=== PATIENT | male | born 1950 | race Caucasian/White ===

== ENCOUNTER 2017-06-28 17:23 | Inpatient (IN) | payer OTHER ==
[2017-06-28] MEDS: SOD CHLORIDE 0.9% 500 ML IV ×2 (17:32→22:30)
[2017-06-28 17:58] LABS: ADD MAN DIFF? NO
[2017-06-28 18:02] LABS: BASOPHILS % 0.2 % (0.0-2.0); EOSINOPHILS % 0.3 % (0.0-7.0); HEMATOCRIT 33.8 % (42.0-52.0); HEMOGLOBIN 11.7 g/dl (14.0-18.0); LYMPHOCYTES # 0.9 10^3/ul (0.8-2.9); LYMPHOCYTES % 9.5 % (15.0-51.0); MEAN CORPUSCULAR HEMOGLOBIN 27.5 pg (29.0-33.0); MEAN CORPUSCULAR HGB CONC 34.6 g/dl (32.0-37.0); MEAN CORPUSCULAR VOLUME 79.3 fl (82.0-101.0); MEAN PLATELET VOLUME 8.7 fl (7.4-10.4); MONOCYTE # 0.7 10^3/ul (0.3-0.9); MONOCYTES % 7.7 % (0.0-11.0); NEUTROPHIL # 7.4 10^3/ul (1.6-7.5); NEUTROPHILS % 82.1 % (39.0-77.0); PLATELET COUNT 349 10^3/UL (140-415); RED BLOOD COUNT 4.26 10^6/ul (4.70-6.10); RED CELL DISTRIBUTION WIDTH 15.5 % (11.5-14.5)
[2017-06-28 18:22] LABS: INR 1.43; PROTIME 17.7 Sec (11.9-14.9); PT RATIO 1.4
[2017-06-28 18:28] LABS: LACTIC ACID 1.7 mmol/L (0.5-2.0)
[2017-06-28 18:30] LABS: ACETAMINOPHEN < 10.0 ug/ml (10.0-30.0); ALANINE AMINOTRANSFERASE 46 IU/L (13-69); ALBUMIN 4.6 g/dl (3.3-4.9); ALBUMIN/GLOBULIN RATIO 1.24; ALKALINE PHOSPHATASE 65 IU/L (42-121); ANION GAP 20 (8-16); ASPARTATE AMINO TRANSFERASE 62 IU/L (15-46); BILIRUBIN,INDIRECT 0.8 mg/dl (0-1.1); BILIRUBIN,TOTAL 0.8 mg/dl (0.2-1.3); BLOOD UREA NITROGEN 10 mg/dl (7-20); CARBON DIOXIDE 29 mmol/L (21-31); CHLORIDE 81 mmol/L (97-110); CREATININE 0.62 mg/dl (0.61-1.24); ETHANOL < 10.0 mg/dl; GLUCOSE 65 mg/dl (70-220); POTASSIUM 3.7 mmol/L (3.5-5.1); SALICYLATE < 1.0 mg/dl (5.0-30.0); SODIUM 126 mmol/L (135-144); TOTAL PROTEIN 8.3 g/dl (6.1-8.1)
[2017-06-28 18:41] LABS: B-TYPE NATRIURETIC PEPTIDE 1740 PG/ML (0-125)
[2017-06-28 18:50] LABS: TROPONIN-I < 0.012 ng/ml (0.00-0.12)
[2017-06-28 21:06] LABS: AADO2 Arterial 265.3 mmHg (7.0-24.0); Allen Test ACCEPTAB; Arterial Base Excess 4.4 mmol/L (-3.0-3); Arterial Blood Gas Oxygen Sat 97.8 mmHG (95.0-98.0); Arterial COHb 0.5 % (0.0-3.0); Arterial HCO3 29.6 mmol/L (22.0-26.0); Arterial MetHb 0.3 % (0.0-1.5); Arterial pCO2 46.6 mmhg (35-45); Blood Gas IEPAP 15/5; MODE MASK - BIPAP; Site Right Radial
[2017-06-28] MEDS ORDERED: FUROSEMIDE 40 MG INJ IV (22:30)
[2017-06-28] MEDS: LORAZEPAM 2 MG INJ IV (22:30)
[2017-06-28 23:48] LABS: CREATINE KINASE 672 IU/L (23-200)
[2017-06-28 23:59] LABS: CK INDEX 1.3; TROPONIN-I 0.013 ng/ml (0.00-0.12)
[2017-06-29 00:01] LABS: CK-MB 8.43 ng/ml (0.0-2.4)
[2017-06-29] MEDS ORDERED: NACL 0.9% 3 ML SYG IV (02:30)
[2017-06-29] MEDS ORDERED: ONDANSETRON 4 MG INJ IV (02:30)
[2017-06-29] MEDS ORDERED: ALBUTEROL/IPRATROPIUM (NEB) 3 ML AMP HHN (02:30)
[2017-06-29] MEDS ORDERED: NITROGLYCERIN (SL) 0.4 MG TAB SL (02:30)
[2017-06-29] MEDS ORDERED: ACETAMINOPHEN 325 MG TAB PO (02:30)
[2017-06-29] MEDS: SODIUM CHLORIDE 1 GM TAB PO ×3 (03:30→13:16)
[2017-06-29] MEDS: LORAZEPAM 2 MG INJ IV (04:38)
[2017-06-29 05:44] LABS: ADD MAN DIFF? NO
[2017-06-29] MEDS: BRIMONIDINE 0.2% 5 ML BTL BOTH EYES ×2 (06:00→14:31)
[2017-06-29 06:02] LABS: BASOPHILS % 0.2 % (0.0-2.0); EOSINOPHILS % 0.3 % (0.0-7.0); HEMATOCRIT 31.9 % (42.0-52.0); LYMPHOCYTES # 1.4 10^3/ul (0.8-2.9); LYMPHOCYTES % 13.9 % (15.0-51.0); MEAN CORPUSCULAR HEMOGLOBIN 27.9 pg (29.0-33.0); MEAN CORPUSCULAR HGB CONC 34.5 g/dl (32.0-37.0); MEAN PLATELET VOLUME 8.7 fl (7.4-10.4); MONOCYTE # 0.9 10^3/ul (0.3-0.9); MONOCYTES % 9.3 % (0.0-11.0); NEUTROPHIL # 7.6 10^3/ul (1.6-7.5); NEUTROPHILS % 75.9 % (39.0-77.0); PLATELET COUNT 342 10^3/UL (140-415); RED BLOOD COUNT 3.94 10^6/ul (4.70-6.10); RED CELL DISTRIBUTION WIDTH 15.3 % (11.5-14.5)
[2017-06-29 06:16] LABS: CREATINE KINASE 809 IU/L (23-200)
[2017-06-29 06:22] LABS: ALANINE AMINOTRANSFERASE 47 IU/L (13-69); ALBUMIN 4.5 g/dl (3.3-4.9); ALBUMIN/GLOBULIN RATIO 1.36; ALKALINE PHOSPHATASE 60 IU/L (42-121); ANION GAP 18 (8-16); ASPARTATE AMINO TRANSFERASE 66 IU/L (15-46); BILIRUBIN,INDIRECT 0.7 mg/dl (0-1.1); BILIRUBIN,TOTAL 0.7 mg/dl (0.2-1.3); BLOOD UREA NITROGEN 9 mg/dl (7-20); CALCIUM 8.7 mg/dl (8.4-10.2); CARBON DIOXIDE 29 mmol/L (21-31); CHLORIDE 83 mmol/L (97-110); CREATININE 0.64 mg/dl (0.61-1.24); GLUCOSE 85 mg/dl (70-220); POTASSIUM 3.7 mmol/L (3.5-5.1); SODIUM 126 mmol/L (135-144); TOTAL PROTEIN 7.8 g/dl (6.1-8.1)
[2017-06-29 06:26] LABS: CK INDEX 1.2; TROPONIN-I 0.019 ng/ml (0.00-0.12)
[2017-06-29 06:31] LABS: CK-MB 9.95 ng/ml (0.0-2.4)
[2017-06-29] MEDS: FUROSEMIDE 40 MG INJ IV ×2 (06:50→18:23)
[2017-06-29] MEDS: AMLODIPINE 10 MG TAB PO (08:26)
[2017-06-29] MEDS: APIXABAN 5 MG TABLET PO ×2 (08:26→21:00)
[2017-06-29] MEDS: ISOSORBIDE MONONITRATE(SR)60 MG TAB PO (08:27)
[2017-06-29] MEDS: PYRIDOXINE 50 MG TAB PO (08:27)
[2017-06-29] MEDS: GABAPENTIN 100 MG CAP PO (08:27)
[2017-06-29] MEDS: DOCUSATE SODIUM 100 MG CAP PO ×2 (08:31→21:00)
[2017-06-29] MEDS: METOPROLOL 25 MG TAB PO (08:31)
[2017-06-29] MEDS: ASPIRIN (EC) 81 MG TAB PO (08:31)
[2017-06-29] MEDS: POTASSIUM CHLORIDE (SR) 20 MEQ TAB PO (08:32)
[2017-06-29] MEDS: HEPARIN 5,000 UNIT/0.5 ML VIAL SC (09:02)
[2017-06-29] MEDS: ATORVASTATIN 20 MG TAB PO (21:00)
[2017-06-29] MEDS ORDERED: GLUCAGON 1 MG INJ IM (21:30)
[2017-06-29] MEDS ORDERED: DEXTROSE 50% 50 ML SYRINGE IV ×2 (21:30)
[2017-06-29] MEDS ORDERED: GLUCOSE GEL 15 GRAM TUBE PO ×2 (21:30)
[2017-06-29] MEDS ORDERED: GLUCOSE GEL 15 GRAM TUBE BUCCAL (21:30)
[2017-06-30] MEDS: ATORVASTATIN 20 MG TAB PO (00:04)
[2017-06-30] MEDS: PAROXETINE 20 MG TAB PO ×2 (00:05→21:09)
[2017-06-30] MEDS: APIXABAN 5 MG TABLET PO ×2 (00:05→21:09)
[2017-06-30] MEDS: QUETIAPINE 25 MG TAB PO ×2 (00:05→21:09)
[2017-06-30] MEDS: DOCUSATE SODIUM 100 MG CAP PO ×2 (00:06→21:08)
[2017-06-30] MEDS: METOPROLOL 25 MG TAB PO ×3 (00:07→21:00)
[2017-06-30] MEDS: HEPARIN 5,000 UNIT/0.5 ML VIAL SC ×3 (00:13→21:13)
[2017-06-30] MEDS: LATANOPROST 0.005% 2.5 ML OPH BOTH EYES ×2 (00:19→21:34)
[2017-06-30] MEDS: BRIMONIDINE 0.2% 5 ML BTL BOTH EYES ×4 (00:20→21:34)
[2017-06-30] MEDS: SODIUM CHLORIDE 1 GM TAB PO ×4 (01:29→21:37)
[2017-06-30] MEDS: FUROSEMIDE 40 MG INJ IV ×2 (06:22→17:33)
[2017-06-30 07:47] LABS: ADD MAN DIFF? NO
[2017-06-30 07:49] LABS: BASOPHILS % 0.4 % (0.0-2.0); EOSINOPHILS # 0.1 10^3/ul (0.0-0.5); HEMATOCRIT 32.9 % (42.0-52.0); HEMOGLOBIN 11.1 g/dl (14.0-18.0); LYMPHOCYTES # 1.5 10^3/ul (0.8-2.9); LYMPHOCYTES % 14.4 % (15.0-51.0); MEAN CORPUSCULAR HEMOGLOBIN 27.5 pg (29.0-33.0); MEAN CORPUSCULAR HGB CONC 33.7 g/dl (32.0-37.0); MEAN CORPUSCULAR VOLUME 81.6 fl (82.0-101.0); MEAN PLATELET VOLUME 8.8 fl (7.4-10.4); MONOCYTE # 1.2 10^3/ul (0.3-0.9); MONOCYTES % 11.8 % (0.0-11.0); NEUTROPHIL # 7.3 10^3/ul (1.6-7.5); PLATELET COUNT 317 10^3/UL (140-415); RED BLOOD COUNT 4.03 10^6/ul (4.70-6.10); RED CELL DISTRIBUTION WIDTH 15.5 % (11.5-14.5)
[2017-06-30 07:49] LABS: WHITE BLOOD COUNT 10.1 10^3/ul (4.8-10.8)
[2017-06-30 08:14] LABS: ALANINE AMINOTRANSFERASE 49 IU/L (13-69); ALBUMIN 3.9 g/dl (3.3-4.9); ALBUMIN/GLOBULIN RATIO 1.25; ALKALINE PHOSPHATASE 57 IU/L (42-121); ANION GAP 18 (8-16); ASPARTATE AMINO TRANSFERASE 71 IU/L (15-46); BILIRUBIN,INDIRECT 0.9 mg/dl (0-1.1); BILIRUBIN,TOTAL 0.9 mg/dl (0.2-1.3); BLOOD UREA NITROGEN 8 mg/dl (7-20); CALCIUM 8.1 mg/dl (8.4-10.2); CARBON DIOXIDE 32 mmol/L (21-31); CHLORIDE 84 mmol/L (97-110); CREATININE 0.53 mg/dl (0.61-1.24); GLUCOSE 94 mg/dl (70-220); MAGNESIUM 1.1 mg/dl (1.7-2.5); POTASSIUM 3.5 mmol/L (3.5-5.1); SODIUM 130 mmol/L (135-144)
[2017-06-30] MEDS: AMLODIPINE 10 MG TAB PO (09:20)
[2017-06-30] MEDS: PYRIDOXINE 50 MG TAB PO (09:21)
[2017-06-30] MEDS: POTASSIUM CHLORIDE (SR) 20 MEQ TAB PO (09:21)
[2017-06-30] MEDS: ISOSORBIDE MONONITRATE(SR)60 MG TAB PO (09:22)
[2017-06-30] MEDS: ASPIRIN (EC) 81 MG TAB PO (09:22)
[2017-06-30] MEDS: GABAPENTIN 100 MG CAP PO (09:22)
[2017-06-30] MEDS: morphine 2 MG INJ IV (10:00)
[2017-06-30] MEDS: MAGNESIUM OXIDE 400 MG TAB PO ×2 (12:46→21:09)
[2017-06-30] MEDS: MAGNESIUM SULFATE 4 GM/100 ML 100 ML IVPB (12:47)
[2017-06-30] MEDS: INFLUENZA VIRUS VACCINE 0.5 ML (DISPENSING) IM* (14:03)
[2017-06-30] MEDS: INSULIN ASPART [NOVOLOG] 3 ML PEN SC (21:35)
[2017-07-01] MEDS: INSULIN ASPART [NOVOLOG] 3 ML PEN SC ×5 (01:00→20:38)
[2017-07-01] MEDS: BRIMONIDINE 0.2% 5 ML BTL BOTH EYES ×3 (06:22→20:35)
[2017-07-01] MEDS: FUROSEMIDE 40 MG INJ IV (06:23)
[2017-07-01] MEDS: ISOSORBIDE MONONITRATE(SR)60 MG TAB PO (08:57)
[2017-07-01] MEDS: POTASSIUM CHLORIDE (SR) 20 MEQ TAB PO ×2 (08:58→13:07)
[2017-07-01] MEDS: GABAPENTIN 100 MG CAP PO (08:58)
[2017-07-01] MEDS: DOCUSATE SODIUM 100 MG CAP PO ×2 (08:59→20:35)
[2017-07-01] MEDS: MAGNESIUM OXIDE 400 MG TAB PO ×2 (08:59→20:35)
[2017-07-01] MEDS: CLOPIDOGREL 75 MG TAB PO (09:00)
[2017-07-01] MEDS: AMLODIPINE 10 MG TAB PO (09:00)
[2017-07-01] MEDS: METOPROLOL 25 MG TAB PO ×2 (09:00→20:36)
[2017-07-01] MEDS: PYRIDOXINE 50 MG TAB PO (09:00)
[2017-07-01] MEDS: APIXABAN 5 MG TABLET PO ×2 (09:00→20:35)
[2017-07-01] MEDS: HEPARIN 5,000 UNIT/0.5 ML VIAL SC ×2 (09:04→20:40)
[2017-07-01 09:24] LABS: ANION GAP 15 (8-16); BLOOD UREA NITROGEN 8 mg/dl (7-20); CARBON DIOXIDE 34 mmol/L (21-31); CHLORIDE 87 mmol/L (97-110); CREATININE 0.62 mg/dl (0.61-1.24); GLUCOSE 129 mg/dl (70-220); MAGNESIUM 1.8 mg/dl (1.7-2.5); PHOSPHORUS 3.3 mg/dl (2.5-4.9); POTASSIUM 3.3 mmol/L (3.5-5.1); SODIUM 133 mmol/L (135-144)
[2017-07-01 09:33] LABS: IRON 29 ug/dl (35-150)
[2017-07-01 09:39] LABS: B-TYPE NATRIURETIC PEPTIDE 722 PG/ML (0-125)
[2017-07-01 09:45] LABS: % IRON SATURATION 9 % SAT (22-52); TOTAL IRON BINDING CAPACITY 335 ug/dl (241-421)
[2017-07-01] MEDS: BUMETANIDE 1 MG INJ IV (15:08)
[2017-07-01] MEDS: BUMETANIDE 3 MG in DEXTROSE 5% 18 ML IV (15:11)
[2017-07-01] MEDS: MAGNESIUM SULFATE 3 GM in DEXTROSE 5% 100 ML IVPB (17:53)
[2017-07-01] MEDS: POTASSIUM CHLORIDE (SR) 10 MEQ TAB PO (18:41)
[2017-07-01] MEDS: QUETIAPINE 25 MG TAB PO (20:35)
[2017-07-01] MEDS: ATORVASTATIN 20 MG TAB PO (20:35)
[2017-07-01] MEDS: PAROXETINE 20 MG TAB PO (20:35)
[2017-07-01] MEDS: LATANOPROST 0.005% 2.5 ML OPH BOTH EYES (20:35)
[2017-07-02] MEDS: BUMETANIDE 1 MG TAB PO (05:34)
[2017-07-02] MEDS: BRIMONIDINE 0.2% 5 ML BTL BOTH EYES ×3 (05:34→20:56)
[2017-07-02] MEDS: ISOSORBIDE MONONITRATE(SR)60 MG TAB PO (08:35)
[2017-07-02] MEDS: MAGNESIUM OXIDE 400 MG TAB PO ×2 (08:35→20:49)
[2017-07-02] MEDS: AMLODIPINE 10 MG TAB PO (08:36)
[2017-07-02] MEDS: GABAPENTIN 100 MG CAP PO (08:36)
[2017-07-02] MEDS: CLOPIDOGREL 75 MG TAB PO (08:36)
[2017-07-02] MEDS: DOCUSATE SODIUM 100 MG CAP PO ×2 (08:36→20:49)
[2017-07-02] MEDS: APIXABAN 5 MG TABLET PO ×2 (08:36→20:56)
[2017-07-02] MEDS: PYRIDOXINE 50 MG TAB PO (08:39)
[2017-07-02] MEDS: HEPARIN 5,000 UNIT/0.5 ML VIAL SC ×2 (08:40→20:51)
[2017-07-02] MEDS: INSULIN ASPART [NOVOLOG] 3 ML PEN SC ×4 (08:52→20:52)
[2017-07-02 08:53] LABS: ADD MAN DIFF? NO
[2017-07-02] MEDS: METOPROLOL 25 MG TAB PO ×2 (09:00→20:50)
[2017-07-02 09:07] LABS: BASOPHILS % 0.5 % (0.0-2.0); EOSINOPHILS # 0.1 10^3/ul (0.0-0.5); EOSINOPHILS % 1.5 % (0.0-7.0); HEMATOCRIT 33.7 % (42.0-52.0); HEMOGLOBIN 10.9 g/dl (14.0-18.0); LYMPHOCYTES # 0.9 10^3/ul (0.8-2.9); LYMPHOCYTES % 11.7 % (15.0-51.0); MEAN CORPUSCULAR HEMOGLOBIN 27.3 pg (29.0-33.0); MEAN CORPUSCULAR HGB CONC 32.3 g/dl (32.0-37.0); MEAN CORPUSCULAR VOLUME 84.3 fl (82.0-101.0); MEAN PLATELET VOLUME 8.6 fl (7.4-10.4); MONOCYTE # 0.8 10^3/ul (0.3-0.9); MONOCYTES % 11.1 % (0.0-11.0); NEUTROPHIL # 5.6 10^3/ul (1.6-7.5); NEUTROPHILS % 74.8 % (39.0-77.0); PLATELET COUNT 306 10^3/UL (140-415); RED CELL DISTRIBUTION WIDTH 15.9 % (11.5-14.5)
[2017-07-02 09:07] LABS: WHITE BLOOD COUNT 7.5 10^3/ul (4.8-10.8)
[2017-07-02 09:40] LABS: MAGNESIUM 1.9 mg/dl (1.7-2.5)
[2017-07-02 09:42] LABS: ANION GAP 15 (8-16); BLOOD UREA NITROGEN 5 mg/dl (7-20); CALCIUM 9.1 mg/dl (8.4-10.2); CHLORIDE 90 mmol/L (97-110); CREATININE 0.59 mg/dl (0.61-1.24); GLUCOSE 156 mg/dl (70-220); POTASSIUM 3.8 mmol/L (3.5-5.1); SODIUM 141 mmol/L (135-144)
[2017-07-02 09:47] LABS: CARBON DIOXIDE 40 mmol/L (21-31)
[2017-07-02 12:26] LABS: AADO2 Arterial 56.6 mmHg (7.0-24.0); Allen Test ACCEPTAB; Arterial Blood Gas Oxygen Sat 95.8 mmHG (95.0-98.0); Arterial COHb 0.6 % (0.0-3.0); Arterial Fraction of Oxyhgb 94.8 % (93.0-99.0); Arterial HCO3 42.1 mmol/L (22.0-26.0); Arterial MetHb 0.4 % (0.0-1.5); Arterial Total Hemglobin 12.2 g/dl (12.0-18.0); Arterial pCO2 64.7 mmhg (35-45); MODE NASAL CANNULA; Site Left Radial
[2017-07-02] MEDS: POTASSIUM CHLORIDE (SR) 20 MEQ TAB PO (12:59)
[2017-07-02] MEDS: ACETAZOLAMIDE 500 MG INJ IV (15:52)
[2017-07-02] MEDS: MAGNESIUM SULFATE 2 GM/50 ML 50 ML IVPB (15:53)
[2017-07-02] MEDS: LATANOPROST 0.005% 2.5 ML OPH BOTH EYES (20:49)
[2017-07-02] MEDS: MECLIZINE 25 MG TAB PO (20:49)
[2017-07-02] MEDS: PAROXETINE 20 MG TAB PO (20:49)
[2017-07-02] MEDS: INSULIN GLARGINE [LANtus] 3 ML PEN SC (20:56)
[2017-07-02] MEDS: ATORVASTATIN 20 MG TAB PO (20:56)
[2017-07-03] MEDS ORDERED: ACCU-CHEK XX (02:00)
[2017-07-03] MEDS: BRIMONIDINE 0.2% 5 ML BTL BOTH EYES ×2 (06:12→13:48)
[2017-07-03] MEDS: BUMETANIDE 1 MG TAB PO ×2 (06:12→17:29)
[2017-07-03] MEDS: INSULIN ASPART [NOVOLOG] 3 ML PEN SC ×3 (08:32→17:34)
[2017-07-03] MEDS: CLOPIDOGREL 75 MG TAB PO (08:38)
[2017-07-03] MEDS: PYRIDOXINE 50 MG TAB PO (08:39)
[2017-07-03] MEDS: AMLODIPINE 10 MG TAB PO (08:39)
[2017-07-03] MEDS: APIXABAN 5 MG TABLET PO (08:39)
[2017-07-03] MEDS: ACETAZOLAMIDE 500 MG INJ IV (08:39)
[2017-07-03] MEDS: ISOSORBIDE MONONITRATE(SR)60 MG TAB PO (08:39)
[2017-07-03] MEDS: DOCUSATE SODIUM 100 MG CAP PO (08:39)
[2017-07-03] MEDS: MAGNESIUM OXIDE 400 MG TAB PO (08:39)
[2017-07-03] MEDS: METOPROLOL 25 MG TAB PO (08:40)
[2017-07-03] MEDS: HEPARIN 5,000 UNIT/0.5 ML VIAL SC (08:48)
[2017-07-03] MEDS: LISINOPRIL 5 MG TAB PO (13:48)
[2017-07-03 15:36] LABS: ADD MAN DIFF? NO
[2017-07-03 15:37] LABS: WHITE BLOOD COUNT 7.7 10^3/ul (4.8-10.8)
[2017-07-03 15:37] LABS: BASOPHIL # 0.1 10^3/ul (0.0-0.1); BASOPHILS % 0.7 % (0.0-2.0); EOSINOPHILS # 0.2 10^3/ul (0.0-0.5); EOSINOPHILS % 2.3 % (0.0-7.0); HEMATOCRIT 34.9 % (42.0-52.0); HEMOGLOBIN 11.1 g/dl (14.0-18.0); LYMPHOCYTES # 1.2 10^3/ul (0.8-2.9); LYMPHOCYTES % 16.1 % (15.0-51.0); MEAN CORPUSCULAR HEMOGLOBIN 27.5 pg (29.0-33.0); MEAN CORPUSCULAR HGB CONC 31.8 g/dl (32.0-37.0); MEAN CORPUSCULAR VOLUME 86.6 fl (82.0-101.0); MEAN PLATELET VOLUME 8.8 fl (7.4-10.4); MONOCYTE # 0.6 10^3/ul (0.3-0.9); MONOCYTES % 8.1 % (0.0-11.0); NEUTROPHIL # 5.6 10^3/ul (1.6-7.5); NEUTROPHILS % 72.5 % (39.0-77.0); PLATELET COUNT 310 10^3/UL (140-415); RED BLOOD COUNT 4.03 10^6/ul (4.70-6.10); RED CELL DISTRIBUTION WIDTH 15.9 % (11.5-14.5)
[2017-07-03 15:54] LABS: ANION GAP 18 (8-16); BLOOD UREA NITROGEN 10 mg/dl (7-20); CALCIUM 9.8 mg/dl (8.4-10.2); CARBON DIOXIDE 33 mmol/L (21-31); CHLORIDE 92 mmol/L (97-110); CREATININE 0.82 mg/dl (0.61-1.24); GLUCOSE 198 mg/dl (70-220); POTASSIUM 3.9 mmol/L (3.5-5.1); SODIUM 139 mmol/L (135-144)
[2017-07-03 15:54] LABS: MAGNESIUM 1.8 mg/dl (1.7-2.5)
== END 2017-07-03 18:28 | disposition home health service (06) | DRG 291 ==
LOC: E/R 17:23 → MS4 22:28
PROC: 4A033R1 Measurement of Arterial Saturation, Peripheral, Percutaneous Approach (ICD-10-PCS; principal; 2017-06-28)
PROC: 3E0234Z Introduction of Serum, Toxoid and Vaccine into Muscle, Percutaneous Approach (ICD-10-PCS; 2017-06-30)
DX: I11.0 Hypertensive heart disease with heart failure (principal); G93.49 Other encephalopathy; E87.3 Alkalosis; I69.354 Hemiplegia and hemiparesis following cerebral infarction affecting left non-dominant side; E87.1 Hypo-osmolality and hyponatremia; E86.0 Dehydration; I48.91 Unspecified atrial fibrillation; Z68.41 Body mass index [BMI] 40.0-44.9, adult; E11.9 Type 2 diabetes mellitus without complications; D50.9 Iron deficiency anemia, unspecified; E66.01 Morbid (severe) obesity due to excess calories; R06.03 Acute respiratory distress; R09.02 Hypoxemia; G47.33 Obstructive sleep apnea (adult) (pediatric); I50.33 Acute on chronic diastolic (congestive) heart failure; E83.42 Hypomagnesemia; J44.9 Chronic obstructive pulmonary disease, unspecified; F17.210 Nicotine dependence, cigarettes, uncomplicated; I25.10 Atherosclerotic heart disease of native coronary artery without angina pectoris; Z95.1 Presence of aortocoronary bypass graft; Z79.82 Long term (current) use of aspirin; Z79.4 Long term (current) use of insulin; Z23 Encounter for immunization
CPT/HCPCS: 36600; 71045; 80048; 80053; 80306; 82550; 82553; 82803; 82962; 83540; 83605; 83735; 83880; 84100; 84484; 85025; 85610; 85730; 87400; 90686; 93005; 94660; 96372; 96374; 96375; 96376; 99291-25; J1120

== ENCOUNTER 2017-07-27 23:20 | Inpatient (IN) | payer OTHER ==
[2017-07-27 23:58] LABS: ADD MAN DIFF? NO
[2017-07-28 00:02] LABS: WHITE BLOOD COUNT 12.7 10^3/ul (4.8-10.8)
[2017-07-28 00:02] LABS: BASOPHIL # 0.1 10^3/ul (0.0-0.1); BASOPHILS % 0.5 % (0.0-2.0); EOSINOPHILS # 0.3 10^3/ul (0.0-0.5); EOSINOPHILS % 2.4 % (0.0-7.0); HEMATOCRIT 36.2 % (42.0-52.0); HEMOGLOBIN 11.6 g/dl (14.0-18.0); LYMPHOCYTES # 2.2 10^3/ul (0.8-2.9); LYMPHOCYTES % 16.9 % (15.0-51.0); MEAN CORPUSCULAR HEMOGLOBIN 27.2 pg (29.0-33.0); MEAN CORPUSCULAR VOLUME 84.8 fl (82.0-101.0); MEAN PLATELET VOLUME 9.5 fl (7.4-10.4); MONOCYTES % 7.9 % (0.0-11.0); NEUTROPHIL # 9.1 10^3/ul (1.6-7.5); NEUTROPHILS % 71.8 % (39.0-77.0); PLATELET COUNT 286 10^3/UL (140-415); RED BLOOD COUNT 4.27 10^6/ul (4.70-6.10); RED CELL DISTRIBUTION WIDTH 15.6 % (11.5-14.5)
[2017-07-28] MEDS: DEXTROSE 50% 50 ML SYRINGE IV ×4 (00:16→07:15)
[2017-07-28 00:22] LABS: ALANINE AMINOTRANSFERASE 31 IU/L (13-69); ALBUMIN 4.6 g/dl (3.3-4.9); ALBUMIN/GLOBULIN RATIO 1.27; ALKALINE PHOSPHATASE 62 IU/L (42-121); ANION GAP 22 (8-16); ASPARTATE AMINO TRANSFERASE 32 IU/L (15-46); BILIRUBIN,INDIRECT 0.1 mg/dl (0-1.1); BILIRUBIN,TOTAL 0.1 mg/dl (0.2-1.3); BLOOD UREA NITROGEN 15 mg/dl (7-20); CALCIUM 9.1 mg/dl (8.4-10.2); CARBON DIOXIDE 32 mmol/L (21-31); CHLORIDE 95 mmol/L (97-110); SODIUM 146 mmol/L (135-144); TOTAL PROTEIN 8.2 g/dl (6.1-8.1)
[2017-07-28 00:25] LABS: GLUCOSE 29 mg/dl (70-220); POTASSIUM 2.7 mmol/L (3.5-5.1)
[2017-07-28 00:26] LABS: INR 1.44; PROTIME 17.8 Sec (11.9-14.9); PT RATIO 1.4
[2017-07-28 00:27] LABS: PARTIAL THROMBOPLASTIN TIME 39.6 Sec (25.0-35.0)
[2017-07-28 00:30] LABS: LACTIC ACID 3.1 mmol/L (0.5-2.0)
[2017-07-28 00:33] LABS: ADD UMIC NO; UR ASCORBIC ACID NEGATIVE (NEGATIVE); UR BILIRUBIN (Dip) NEGATIVE (NEGATIVE); UR BLOOD (Dip) NEGATIVE (NEGATIVE); UR CLARITY CLEAR (CLEAR); UR COLOR YELLOW (YELLOW); UR GLUCOSE (Dip) NEGATIVE (NEGATIVE); UR KETONES (Dip) NEGATIVE (NEGATIVE); UR LEUKOCYTE ESTERASE (Dip) NEGATIVE Leu/ul (NEGATIVE); UR NITRITE (Dip) NEGATIVE (NEGATIVE); UR RBC 3 /HPF (0-5); UR SPECIFIC GRAVITY (Dip) 1.008 (1.003-1.030); UR TOTAL PROTEIN (Dip) NEGATIVE (NEGATIVE); UR UROBILINOGEN (Dip) NEGATIVE (NEGATIVE); UR WBC 1 /HPF (0-5)
[2017-07-28 00:34] LABS: TROPONIN-I 0.016 ng/ml (0.00-0.12)
[2017-07-28] MEDS: POTASSIUM CHLORIDE 50 ML IVPB (00:44)
[2017-07-28] MEDS: POTASSIUM CHLORIDE (SR) 20 MEQ TAB PO ×2 (00:47→08:51)
[2017-07-28] MEDS ORDERED: POTASSIUM CHLORIDE 10 MEQ in SOD CHLORIDE 0.9% 100 ML IVPB (01:00)
[2017-07-28] MEDS: SOD CHLORIDE 0.9% 1,000 ML IV (01:27)
[2017-07-28] MEDS: POTASSIUM CHLORIDE 30 MEQ in SOD CHLORIDE 0.9% 250 ML IVPB (01:27)
[2017-07-28] MEDS ORDERED: ONDANSETRON 4 MG INJ IV ×2 (01:30→03:00)
[2017-07-28] MEDS ORDERED: ACETAMINOPHEN 325 MG TAB PO (01:30)
[2017-07-28] MEDS: CEFEPIME 1GM/50 ML (PMX) 50 ML IVPB (01:35)
[2017-07-28] MEDS: VANCOMYCIN 1 GM (PMX) 250 ML IVPB (02:09)
[2017-07-28] MEDS: DEXTROSE 5%-0.45% NACL 1,000 ML IV ×2 (02:33→02:54)
[2017-07-28] MEDS ORDERED: NACL 0.9% 3 ML SYG IV (03:00)
[2017-07-28 03:48] LABS: LACTIC ACID 1.8 mmol/L (0.5-2.0)
[2017-07-28] MEDS: PANTOPRAZOLE (EC) 40 MG TAB PO (06:10)
[2017-07-28 06:14] LABS: ADD MAN DIFF? NO
[2017-07-28 06:24] LABS: WHITE BLOOD COUNT 8.4 10^3/ul (4.8-10.8)
[2017-07-28 06:24] LABS: BASOPHILS % 0.1 % (0.0-2.0); EOSINOPHILS # 0.1 10^3/ul (0.0-0.5); EOSINOPHILS % 0.7 % (0.0-7.0); HEMATOCRIT 29.6 % (42.0-52.0); HEMOGLOBIN 9.6 g/dl (14.0-18.0); LYMPHOCYTES # 1.2 10^3/ul (0.8-2.9); LYMPHOCYTES % 14.3 % (15.0-51.0); MEAN CORPUSCULAR HEMOGLOBIN 27.4 pg (29.0-33.0); MEAN CORPUSCULAR HGB CONC 32.4 g/dl (32.0-37.0); MEAN CORPUSCULAR VOLUME 84.6 fl (82.0-101.0); MEAN PLATELET VOLUME 9.4 fl (7.4-10.4); MONOCYTE # 0.6 10^3/ul (0.3-0.9); MONOCYTES % 6.9 % (0.0-11.0); NEUTROPHIL # 6.5 10^3/ul (1.6-7.5); NEUTROPHILS % 77.6 % (39.0-77.0); PLATELET COUNT 205 10^3/UL (140-415); RED CELL DISTRIBUTION WIDTH 15.8 % (11.5-14.5)
[2017-07-28 06:43] LABS: LACTIC ACID 1.2 mmol/L (0.5-2.0)
[2017-07-28 06:51] LABS: ALANINE AMINOTRANSFERASE 27 IU/L (13-69); ALBUMIN 3.5 g/dl (3.3-4.9); ALKALINE PHOSPHATASE 47 IU/L (42-121); ANION GAP 18 (8-16); ASPARTATE AMINO TRANSFERASE 24 IU/L (15-46); BILIRUBIN,INDIRECT 0.2 mg/dl (0-1.1); BILIRUBIN,TOTAL 0.2 mg/dl (0.2-1.3); BLOOD UREA NITROGEN 14 mg/dl (7-20); CALCIUM 8.1 mg/dl (8.4-10.2); CARBON DIOXIDE 32 mmol/L (21-31); CHLORIDE 100 mmol/L (97-110); CREATININE 0.81 mg/dl (0.61-1.24); POTASSIUM 3.6 mmol/L (3.5-5.1); SODIUM 146 mmol/L (135-144); TOTAL PROTEIN 6.4 g/dl (6.1-8.1)
[2017-07-28 06:57] LABS: GLUCOSE 37 mg/dl (70-220)
[2017-07-28] MEDS: DEXTROSE 10% 1,000 ML IV (07:18)
[2017-07-28] MEDS: BUMETANIDE 1 MG TAB PO ×2 (08:15→17:27)
[2017-07-28] MEDS: BRIMONIDINE 0.2% 5 ML BTL BOTH EYES ×3 (08:15→22:00)
[2017-07-28] MEDS: ISOSORBIDE MONONITRATE(SR)60 MG TAB PO (08:51)
[2017-07-28] MEDS: LISINOPRIL 5 MG TAB PO (08:51)
[2017-07-28] MEDS: APIXABAN 5 MG TABLET PO ×2 (08:51→20:31)
[2017-07-28] MEDS: CLOPIDOGREL 75 MG TAB PO (08:51)
[2017-07-28] MEDS: AMLODIPINE 10 MG TAB PO (08:51)
[2017-07-28] MEDS: METOPROLOL 25 MG TAB PO ×2 (08:52→20:32)
[2017-07-28 10:35] LABS: LACTIC ACID 1.9 mmol/L (0.5-2.0)
[2017-07-28] MEDS: MAGNESIUM SULFATE 4 GM/100 ML 100 ML IVPB (10:56)
[2017-07-28] MEDS: POLYETHYLENE GLYCOL 17 GM PACKET PO (10:56)
[2017-07-28] MEDS: MAGNESIUM OXIDE 400 MG TAB PO ×2 (10:56→20:31)
[2017-07-28] MEDS ORDERED: GLUCOSE GEL 15 GRAM TUBE BUCCAL (14:30)
[2017-07-28] MEDS ORDERED: GLUCOSE GEL 15 GRAM TUBE PO ×2 (14:30)
[2017-07-28] MEDS ORDERED: DEXTROSE 50% 50 ML SYRINGE IV ×2 (14:30)
[2017-07-28] MEDS ORDERED: GLUCAGON 1 MG INJ IM (14:30)
[2017-07-28] MEDS: INSULIN ASPART [NOVOLOG] 3 ML PEN SC ×2 (17:23→20:38)
[2017-07-28] MEDS: LATANOPROST 0.005% 2.5 ML OPH BOTH EYES (20:30)
[2017-07-28] MEDS: SENNA TAB PO (20:30)
[2017-07-28] MEDS: QUETIAPINE 25 MG TAB PO (20:31)
[2017-07-28] MEDS: ATORVASTATIN 20 MG TAB PO (20:31)
[2017-07-28] MEDS: PAROXETINE 20 MG TAB PO (20:31)
[2017-07-28] MEDS: DOCUSATE SODIUM 100 MG CAP PO (20:31)
[2017-07-28] MEDS: ALBUTEROL/IPRATROPIUM (NEB) 3 ML AMP HHN (21:30)
[2017-07-29] MEDS: ACCU-CHEK XX (02:00)
[2017-07-29] MEDS: DEXTROSE 10% 1,000 ML IV (03:30)
[2017-07-29] MEDS: PANTOPRAZOLE (EC) 40 MG TAB PO (06:08)
[2017-07-29] MEDS: BUMETANIDE 1 MG TAB PO ×2 (06:08→17:51)
[2017-07-29] MEDS: BRIMONIDINE 0.2% 5 ML BTL BOTH EYES ×3 (06:09→21:13)
[2017-07-29 06:53] LABS: ADD MAN DIFF? NO
[2017-07-29 06:58] LABS: WHITE BLOOD COUNT 6.5 10^3/ul (4.8-10.8)
[2017-07-29 06:58] LABS: BASOPHIL # 0.1 10^3/ul (0.0-0.1); BASOPHILS % 0.9 % (0.0-2.0); EOSINOPHILS # 0.2 10^3/ul (0.0-0.5); EOSINOPHILS % 3.5 % (0.0-7.0); HEMATOCRIT 31.7 % (42.0-52.0); LYMPHOCYTES # 1.5 10^3/ul (0.8-2.9); LYMPHOCYTES % 23.5 % (15.0-51.0); MEAN CORPUSCULAR HGB CONC 31.5 g/dl (32.0-37.0); MEAN CORPUSCULAR VOLUME 85.7 fl (82.0-101.0); MEAN PLATELET VOLUME 9.6 fl (7.4-10.4); MONOCYTE # 0.5 10^3/ul (0.3-0.9); MONOCYTES % 8.3 % (0.0-11.0); NEUTROPHIL # 4.1 10^3/ul (1.6-7.5); NEUTROPHILS % 63.5 % (39.0-77.0); PLATELET COUNT 202 10^3/UL (140-415); RED CELL DISTRIBUTION WIDTH 15.9 % (11.5-14.5)
[2017-07-29 07:07] LABS: HEMOGLOBIN A1C 5.9 % (0-5.9)
[2017-07-29 07:48] LABS: ANION GAP 17 (8-16); BLOOD UREA NITROGEN 9 mg/dl (7-20); CALCIUM 8.9 mg/dl (8.4-10.2); CARBON DIOXIDE 32 mmol/L (21-31); CHLORIDE 97 mmol/L (97-110); CREATININE 0.69 mg/dl (0.61-1.24); GLUCOSE 171 mg/dl (70-220); MAGNESIUM 1.8 mg/dl (1.7-2.5); PHOSPHORUS 3.9 mg/dl (2.5-4.9); POTASSIUM 4.1 mmol/L (3.5-5.1); SODIUM 142 mmol/L (135-144)
[2017-07-29] MEDS: CLOPIDOGREL 75 MG TAB PO (08:13)
[2017-07-29] MEDS: DOCUSATE SODIUM 100 MG CAP PO ×2 (08:13→20:22)
[2017-07-29] MEDS: APIXABAN 5 MG TABLET PO ×2 (08:13→20:23)
[2017-07-29] MEDS: INSULIN ASPART [NOVOLOG] 3 ML PEN SC ×4 (08:13→20:24)
[2017-07-29] MEDS: POTASSIUM CHLORIDE (SR) 20 MEQ TAB PO (08:14)
[2017-07-29] MEDS: METOPROLOL 25 MG TAB PO ×2 (08:14→20:22)
[2017-07-29] MEDS: SENNA TAB PO ×2 (08:14→20:23)
[2017-07-29] MEDS: AMLODIPINE 10 MG TAB PO (08:15)
[2017-07-29] MEDS: MAGNESIUM OXIDE 400 MG TAB PO ×2 (08:15→20:22)
[2017-07-29] MEDS: LISINOPRIL 5 MG TAB PO (08:15)
[2017-07-29] MEDS: ISOSORBIDE MONONITRATE(SR)60 MG TAB PO (08:15)
[2017-07-29] MEDS: morphine 2 MG INJ IV ×2 (10:05→17:46)
[2017-07-29] MEDS: MAGNESIUM HYDROXIDE 30ML CUP PO (10:09)
[2017-07-29] MEDS: PAROXETINE 20 MG TAB PO (20:22)
[2017-07-29] MEDS: ATORVASTATIN 20 MG TAB PO (20:22)
[2017-07-29] MEDS: QUETIAPINE 25 MG TAB PO (20:23)
[2017-07-29] MEDS: ACETAMINOPHEN 325 MG TAB PO (20:32)
[2017-07-29] MEDS: LATANOPROST 0.005% 2.5 ML OPH BOTH EYES (20:36)
[2017-07-29] MEDS: POLYETHYLENE GLYCOL 17 GM PACKET PO (23:36)
[2017-07-30] MEDS: ACCU-CHEK XX (01:06)
[2017-07-30] MEDS: BRIMONIDINE 0.2% 5 ML BTL BOTH EYES ×2 (06:00→14:16)
[2017-07-30] MEDS: BUMETANIDE 1 MG TAB PO (06:15)
[2017-07-30] MEDS: PANTOPRAZOLE (EC) 40 MG TAB PO (06:15)
[2017-07-30] MEDS ORDERED: LACTULOSE ENEMA 1,000 ML BTL PR (07:00)
[2017-07-30] MEDS: LACTULOSE 30ML CUP PO (07:04)
[2017-07-30] MEDS: INSULIN ASPART [NOVOLOG] 3 ML PEN SC ×3 (07:55→17:35)
[2017-07-30] MEDS: morphine 2 MG INJ IV (08:27)
[2017-07-30] MEDS: AMLODIPINE 10 MG TAB PO (08:34)
[2017-07-30] MEDS: CLOPIDOGREL 75 MG TAB PO (08:35)
[2017-07-30] MEDS: POTASSIUM CHLORIDE (SR) 20 MEQ TAB PO (08:35)
[2017-07-30] MEDS: MAGNESIUM OXIDE 400 MG TAB PO (08:35)
[2017-07-30] MEDS: ISOSORBIDE MONONITRATE(SR)60 MG TAB PO (08:35)
[2017-07-30] MEDS: SENNA TAB PO (08:35)
[2017-07-30] MEDS: APIXABAN 5 MG TABLET PO (08:36)
[2017-07-30] MEDS: DOCUSATE SODIUM 100 MG CAP PO (08:36)
[2017-07-30] MEDS: LISINOPRIL 5 MG TAB PO (08:36)
[2017-07-30] MEDS: POLYETHYLENE GLYCOL 17 GM PACKET PO (11:25)
== END 2017-07-30 18:21 | disposition home health service (06) | DRG 637 ==
LOC: TEL 07-28 01:03 → E/R 23:20
DX: E11.649 Type 2 diabetes mellitus with hypoglycemia without coma (principal); G93.49 Other encephalopathy; I50.32 Chronic diastolic (congestive) heart failure; I69.354 Hemiplegia and hemiparesis following cerebral infarction affecting left non-dominant side; E78.5 Hyperlipidemia, unspecified; I25.10 Atherosclerotic heart disease of native coronary artery without angina pectoris; Z95.1 Presence of aortocoronary bypass graft; F03.90 Unspecified dementia, unspecified severity, without behavioral disturbance, psychotic disturbance, mood disturbance, and anxiety; G40.909 Epilepsy, unspecified, not intractable, without status epilepticus; Z98.61 Coronary angioplasty status; Z79.4 Long term (current) use of insulin; I48.91 Unspecified atrial fibrillation; Z79.01 Long term (current) use of anticoagulants; K59.00 Constipation, unspecified; D72.829 Elevated white blood cell count, unspecified; I11.0 Hypertensive heart disease with heart failure; R00.1 Bradycardia, unspecified
CPT/HCPCS: 36415; 71045; 80048; 80053; 81003; 82962; 83036; 83605; 83735; 84100; 84484; 85025; 85610; 85730; 87040; 87081; 87086; 93005; 94664; 96374; 96375; 96376; 97110; 97162; 97530; 99291-25

== ENCOUNTER 2018-07-11 11:18 | Emergency (ER) | payer OTHER ==
[2018-07-11 13:01] LABS: ADD MAN DIFF? NO
[2018-07-11 13:15] LABS: BASOPHIL # 0.1 10^3/ul (0.0-0.1); BASOPHILS % 0.5 % (0.0-2.0); EOSINOPHILS # 0.1 10^3/ul (0.0-0.5); EOSINOPHILS % 0.7 % (0.0-7.0); HEMATOCRIT 42.5 % (42.0-52.0); HEMOGLOBIN 14.2 g/dl (14.0-18.0); LYMPHOCYTES # 2.1 10^3/ul (0.8-2.9); MEAN CORPUSCULAR HEMOGLOBIN 29.2 pg (29.0-33.0); MEAN CORPUSCULAR HGB CONC 33.4 g/dl (32.0-37.0); MEAN CORPUSCULAR VOLUME 87.4 fl (82.0-101.0); MEAN PLATELET VOLUME 9.7 fl (7.4-10.4); MONOCYTE # 0.6 10^3/ul (0.3-0.9); MONOCYTES % 5.6 % (0.0-11.0); NEUTROPHIL # 8.2 10^3/ul (1.6-7.5); NEUTROPHILS % 73.7 % (39.0-77.0); PLATELET COUNT 278 10^3/UL (140-415); RED BLOOD COUNT 4.86 10^6/ul (4.70-6.10); RED CELL DISTRIBUTION WIDTH 13.1 % (11.5-14.5)
[2018-07-11 13:15] LABS: WHITE BLOOD COUNT 11.1 10^3/ul (4.8-10.8)
[2018-07-11 13:31] LABS: ALANINE AMINOTRANSFERASE 26 IU/L (13-69); ALBUMIN 4.9 g/dl (3.3-4.9); ALBUMIN/GLOBULIN RATIO 1.53; ALKALINE PHOSPHATASE 54 IU/L (42-121); ANION GAP 20 (5-13); ASPARTATE AMINO TRANSFERASE 40 IU/L (15-46); BILIRUBIN,INDIRECT 0.7 mg/dl (0-1.1); BILIRUBIN,TOTAL 0.7 mg/dl (0.2-1.3); BLOOD UREA NITROGEN 13 mg/dl (7-20); CALCIUM 8.4 mg/dl (8.4-10.2); CARBON DIOXIDE 33 mmol/L (21-31); CHLORIDE 88 mmol/L (97-110); CREATININE 0.87 mg/dl (0.61-1.24); Estimated GFR > 60 mL/min (>60); GLUCOSE 131 mg/dl (70-220); POTASSIUM 3.1 mmol/L (3.5-5.1); SODIUM 141 mmol/L (135-144); TOTAL PROTEIN 8.1 g/dl (6.1-8.1)
[2018-07-11 13:33] LABS: LIPASE 272 U/L (23-300)
[2018-07-11 13:42] LABS: TROPONIN-I 0.021 ng/ml (0.000-0.120)
[2018-07-11 13:47] LABS: INR 1.23; PROTIME 15.6 Sec (11.9-14.9); PT RATIO 1.2
[2018-07-11] MEDS ORDERED: ONDANSETRON 4 MG INJ (14:18)
[2018-07-11] MEDS: ONDANSETRON 4 MG INJ IV (14:44)
[2018-07-11 15:19] LABS: ADD UMIC YES; UR ASCORBIC ACID NEGATIVE (NEGATIVE); UR BILIRUBIN (Dip) NEGATIVE (NEGATIVE); UR BLOOD (Dip) NEGATIVE (NEGATIVE); UR CLARITY CLEAR (CLEAR); UR COLOR YELLOW (YELLOW); UR GLUCOSE (Dip) NEGATIVE (NEGATIVE); UR KETONES (Dip) 1+ mg/dL (NEGATIVE); UR LEUKOCYTE ESTERASE (Dip) NEGATIVE Leu/ul (NEGATIVE); UR NITRITE (Dip) NEGATIVE (NEGATIVE); UR RBC 5 /HPF (0-5); UR TOTAL PROTEIN (Dip) 2+ mg/dl (NEGATIVE); UR UROBILINOGEN (Dip) NEGATIVE (NEGATIVE); UR WBC 1 /HPF (0-5)
[2018-07-11] MEDS: IOHEXOL 100 ML (16:51)
[2018-07-11] MEDS: SOD CHLORIDE 0.9% 100 ML (16:51)
[2018-07-11] MEDS: IOHEXOL 350MG/ML 50 ML BTL (16:52)
== END 2018-07-11 19:05 | disposition home or self-care (01) ==
LOC: E/R 11:18
DX: I48.91 Unspecified atrial fibrillation (principal); R10.9 Unspecified abdominal pain; E11.9 Type 2 diabetes mellitus without complications; I25.10 Atherosclerotic heart disease of native coronary artery without angina pectoris; I10 Essential (primary) hypertension; Z79.4 Long term (current) use of insulin; Z79.82 Long term (current) use of aspirin; Z86.73 Personal history of transient ischemic attack (TIA), and cerebral infarction without residual deficits; Z87.891 Personal history of nicotine dependence; Z95.1 Presence of aortocoronary bypass graft
CPT/HCPCS: 74176; 75635; 80053; 81001; 83690; 84484; 85025; 85610; 93005; 96374; 99285-25

== ENCOUNTER 2018-10-18 17:28 | Inpatient (IN) | payer OTHER ==
[2018-10-18] MEDS: SOD CHLORIDE 0.9% 1,000 ML IV (17:46)
[2018-10-18 17:48] LABS: ADD MAN DIFF? NO
[2018-10-18 17:49] LABS: BASOPHILS % 0.2 % (0.0-2.0); EOSINOPHILS # 0.1 10^3/ul (0.0-0.5); EOSINOPHILS % 0.6 % (0.0-7.0); HEMATOCRIT 40.1 % (42.0-52.0); HEMOGLOBIN 13.8 g/dl (14.0-18.0); LYMPHOCYTES # 1.9 10^3/ul (0.8-2.9); LYMPHOCYTES % 15.7 % (15.0-51.0); MEAN CORPUSCULAR HEMOGLOBIN 30.9 pg (29.0-33.0); MEAN CORPUSCULAR HGB CONC 34.4 g/dl (32.0-37.0); MEAN CORPUSCULAR VOLUME 89.9 fl (82.0-101.0); MEAN PLATELET VOLUME 9.4 fl (7.4-10.4); MONOCYTE # 0.5 10^3/ul (0.3-0.9); MONOCYTES % 3.8 % (0.0-11.0); NEUTROPHIL # 9.6 10^3/ul (1.6-7.5); NEUTROPHILS % 79.4 % (39.0-77.0); PLATELET COUNT 316 10^3/UL (140-415); RED BLOOD COUNT 4.46 10^6/ul (4.70-6.10); RED CELL DISTRIBUTION WIDTH 12.2 % (11.5-14.5)
[2018-10-18] MEDS: ONDANSETRON 4 MG INJ IV (17:49)
[2018-10-18 18:12] LABS: ALANINE AMINOTRANSFERASE 20 IU/L (13-69); ALBUMIN 4.7 g/dl (3.3-4.9); ALBUMIN/GLOBULIN RATIO 1.27; ALKALINE PHOSPHATASE 63 IU/L (42-121); ANION GAP 24 (5-13); ASPARTATE AMINO TRANSFERASE 37 IU/L (15-46); BILIRUBIN,INDIRECT 0.7 mg/dl (0-1.1); BILIRUBIN,TOTAL 0.7 mg/dl (0.2-1.3); BLOOD UREA NITROGEN 14 mg/dl (7-20); CALCIUM 7.7 mg/dl (8.4-10.2); CARBON DIOXIDE 29 mmol/L (21-31); CHLORIDE 91 mmol/L (97-110); CREATININE 1.06 mg/dl (0.61-1.24); Estimated GFR > 60 mL/min (>60); GLUCOSE 175 mg/dl (70-220); LIPASE 196 U/L (23-300); SODIUM 144 mmol/L (135-144); TOTAL PROTEIN 8.4 g/dl (6.1-8.1)
[2018-10-18 18:23] LABS: TROPONIN-I < 0.012 ng/ml (0.000-0.120)
[2018-10-18 18:24] LABS: POTASSIUM 2.9 mmol/L (3.5-5.1)
[2018-10-18] MEDS ORDERED: POTASSIUM CHLORIDE 50 ML IVPB (18:30)
[2018-10-18 18:43] LABS: ADD UMIC YES; UR ASCORBIC ACID NEGATIVE (NEGATIVE); UR BILIRUBIN (Dip) NEGATIVE (NEGATIVE); UR BLOOD (Dip) 1+ mg/dL (NEGATIVE); UR CLARITY CLEAR (CLEAR); UR COLOR STRAW (YELLOW); UR GLUCOSE (Dip) NEGATIVE (NEGATIVE); UR KETONES (Dip) TRACE mg/dL (NEGATIVE); UR LEUKOCYTE ESTERASE (Dip) NEGATIVE Leu/ul (NEGATIVE); UR NITRITE (Dip) NEGATIVE (NEGATIVE); UR RBC 1 /HPF (0-5); UR SPECIFIC GRAVITY (Dip) 1.005 (1.003-1.030); UR TOTAL PROTEIN (Dip) NEGATIVE (NEGATIVE); UR UROBILINOGEN (Dip) NEGATIVE (NEGATIVE); UR WBC 0 /HPF (0-5)
[2018-10-18] MEDS: POTASSIUM CHLORIDE 50 ML IVPB ×3 (19:11→21:50)
[2018-10-18] MEDS ORDERED: ACETAMINOPHEN 325 MG TAB PO (20:00)
[2018-10-18] MEDS: ASPIRIN 81 MG TAB PO (20:37)
[2018-10-19 00:54] LABS: CREATINE KINASE 244 IU/L (23-200)
[2018-10-19 01:06] LABS: CK INDEX 1.4; TROPONIN-I 0.023 ng/ml (0.000-0.120)
[2018-10-19] MEDS ORDERED: MECLIZINE 25 MG TAB PO (05:30)
[2018-10-19] MEDS ORDERED: NACL 0.9% 3 ML SYG IV (05:30)
[2018-10-19] MEDS ORDERED: ALBUTEROL/IPRATROPIUM (NEB) 3 ML AMP HHN (05:30)
[2018-10-19] MEDS: ONDANSETRON 4 MG INJ IV ×2 (05:34→09:29)
[2018-10-19] MEDS: BUMETANIDE 1 MG TAB PO ×2 (05:34→17:03)
[2018-10-19 06:53] LABS: ADD MAN DIFF? NO
[2018-10-19 07:02] LABS: WHITE BLOOD COUNT 15.7 10^3/ul (4.8-10.8)
[2018-10-19 07:02] LABS: BASOPHILS % 0.1 % (0.0-2.0); EOSINOPHILS % 0.1 % (0.0-7.0); HEMATOCRIT 36.8 % (42.0-52.0); HEMOGLOBIN 12.9 g/dl (14.0-18.0); LYMPHOCYTES # 1.2 10^3/ul (0.8-2.9); LYMPHOCYTES % 7.5 % (15.0-51.0); MEAN CORPUSCULAR HEMOGLOBIN 31.2 pg (29.0-33.0); MEAN CORPUSCULAR HGB CONC 35.1 g/dl (32.0-37.0); MEAN CORPUSCULAR VOLUME 89.1 fl (82.0-101.0); MEAN PLATELET VOLUME 9.7 fl (7.4-10.4); MONOCYTE # 0.6 10^3/ul (0.3-0.9); NEUTROPHIL # 13.7 10^3/ul (1.6-7.5); NEUTROPHILS % 87.3 % (39.0-77.0); PLATELET COUNT 254 10^3/UL (140-415); RED BLOOD COUNT 4.13 10^6/ul (4.70-6.10)
[2018-10-19 07:19] LABS: CREATINE KINASE 314 IU/L (23-200)
[2018-10-19 07:23] LABS: ALANINE AMINOTRANSFERASE 18 IU/L (13-69); ALBUMIN 4.2 g/dl (3.3-4.9); ALBUMIN/GLOBULIN RATIO 1.23; ALKALINE PHOSPHATASE 43 IU/L (42-121); ANION GAP 15 (5-13); ASPARTATE AMINO TRANSFERASE 36 IU/L (15-46); BILIRUBIN,INDIRECT 0.7 mg/dl (0-1.1); BILIRUBIN,TOTAL 0.7 mg/dl (0.2-1.3); BLOOD UREA NITROGEN 13 mg/dl (7-20); CALCIUM 7.1 mg/dl (8.4-10.2); CARBON DIOXIDE 34 mmol/L (21-31); CHLORIDE 95 mmol/L (97-110); CHOL/HDL RATIO 5.2 RATIO; CHOLESTEROL 169 mg/dl (100-200); CREATININE 0.89 mg/dl (0.61-1.24); Estimated GFR > 60 mL/min (>60); GLUCOSE 166 mg/dl (70-220); HDL CHOLESTEROL 32 mg/dl (31-75); LDL CHOLESTEROL,CALCULATED 119 mg/dl; SODIUM 144 mmol/L (135-144); TOTAL PROTEIN 7.6 g/dl (6.1-8.1); TRIGLYCERIDES 90 mg/dl (0-149)
[2018-10-19 07:31] LABS: CK INDEX 1.1; MAGNESIUM 0.2 mg/dl (1.7-2.5); POTASSIUM 2.8 mmol/L (3.5-5.1); TROPONIN-I 0.023 ng/ml (0.000-0.120)
[2018-10-19 07:34] LABS: CK-MB 3.59 ng/ml (0.0-2.4)
[2018-10-19 08:25] LABS: HEMOGLOBIN A1C 4.7 % (0-5.9)
[2018-10-19 09:00] LABS: MAGNESIUM 0.2 mg/dl (1.7-2.5)
[2018-10-19] MEDS: POTASSIUM CHLORIDE (SR) 20 MEQ TAB PO ×2 (09:00)
[2018-10-19] MEDS ORDERED: HEPARIN 5,000 UNIT/1 ML VIAL SC ×2 (09:00→21:00)
[2018-10-19] MEDS: MAGNESIUM SULFATE 2 GM/50 ML 50 ML IVPB ×3 (09:13→14:19)
[2018-10-19] MEDS: DOCUSATE SODIUM 100 MG CAP PO ×2 (09:17→20:51)
[2018-10-19] MEDS: GABAPENTIN 100 MG CAP PO (09:17)
[2018-10-19] MEDS: AMLODIPINE 10 MG TAB PO (09:17)
[2018-10-19] MEDS: ASPIRIN (EC) 81 MG TAB PO (09:17)
[2018-10-19] MEDS: APIXABAN 5 MG TABLET PO ×2 (09:17→20:52)
[2018-10-19] MEDS: LOSARTAN 25 MG TAB PO (09:18)
[2018-10-19] MEDS: METOPROLOL 25 MG TAB PO ×2 (09:18→20:52)
[2018-10-19] MEDS: PYRIDOXINE 50 MG TAB PO (09:18)
[2018-10-19] MEDS ORDERED: GLUCAGON 1 MG INJ IM (10:00)
[2018-10-19] MEDS ORDERED: GLUCOSE GEL 15 GRAM TUBE BUCCAL (10:00)
[2018-10-19] MEDS: POTASSIUM CHLORIDE 100 ML IVPB ×4 (10:00→19:04)
[2018-10-19] MEDS ORDERED: GLUCOSE GEL 15 GRAM TUBE PO ×2 (10:00)
[2018-10-19] MEDS ORDERED: DEXTROSE 50% 50 ML SYRINGE IV ×2 (10:00)
[2018-10-19] MEDS: [UNRECOGNIZED DRUG - REMARK] XX ×2 (11:30→19:30)
[2018-10-19] MEDS: INSULIN ASPART [NOVOLOG] 3 ML PEN SC ×3 (11:50→20:52)
[2018-10-19] MEDS ORDERED: MAGNESIUM SULFATE 4 GM/100 ML 100 ML IVPB (12:30)
[2018-10-19] MEDS ORDERED: morphine 2 MG INJ IV (13:00)
[2018-10-19] MEDS: D5W-0.45 NACL + KCL 20 MEQ 1,000 ML IV (13:07)
[2018-10-19 16:33] LABS: ANION GAP 9 (5-13); BLOOD UREA NITROGEN 11 mg/dl (7-20); CALCIUM 6.2 mg/dl (8.4-10.2); CARBON DIOXIDE 34 mmol/L (21-31); CHLORIDE 94 mmol/L (97-110); CREATININE 0.83 mg/dl (0.61-1.24); Estimated GFR > 60 mL/min (>60); POTASSIUM 5.1 mmol/L (3.5-5.1); SODIUM 137 mmol/L (135-144)
[2018-10-19 16:40] LABS: GLUCOSE 520 mg/dl (70-220)
[2018-10-19 17:53] LABS: PARATHYROID HORMONE 130.5 pg/ml (24.0-73.0)
[2018-10-19 18:23] LABS: MAGNESIUM 2.5 mg/dl (1.7-2.5)
[2018-10-19 18:24] LABS: ANION GAP 12 (5-13); BLOOD UREA NITROGEN 12 mg/dl (7-20); CARBON DIOXIDE 35 mmol/L (21-31); CHLORIDE 95 mmol/L (97-110); CREATININE 0.91 mg/dl (0.61-1.24); Estimated GFR > 60 mL/min (>60); GLUCOSE 142 mg/dl (70-220); SODIUM 142 mmol/L (135-144)
[2018-10-19 18:26] LABS: POTASSIUM 2.7 mmol/L (3.5-5.1)
[2018-10-19] MEDS: LATANOPROST 0.005% 2.5 ML OPH BOTH EYES (20:51)
[2018-10-19] MEDS: ATORVASTATIN 20 MG TAB PO (20:52)
[2018-10-19] MEDS: PAROXETINE 20 MG TAB PO (20:52)
[2018-10-19 22:12] LABS: SODIUM,URINE RANDOM 36 mmol/L (30-90)
[2018-10-19 22:12] LABS: POTASSIUM,URINE RANDOM 71.9 mmol/L (25-125)
[2018-10-19] MEDS: ALPHAGAN P 0.1% BOTH EYES (23:17)
[2018-10-20] MEDS: D5W-0.45 NACL + KCL 20 MEQ 1,000 ML IV (01:40)
[2018-10-20] MEDS: ACCU-CHEK XX (01:43)
[2018-10-20] MEDS: BUMETANIDE 1 MG TAB PO ×2 (06:12→18:11)
[2018-10-20 07:31] LABS: ADD MAN DIFF? NO
[2018-10-20 07:39] LABS: WHITE BLOOD COUNT 11.4 10^3/ul (4.8-10.8)
[2018-10-20 07:39] LABS: BASOPHILS % 0.4 % (0.0-2.0); EOSINOPHILS # 0.2 10^3/ul (0.0-0.5); EOSINOPHILS % 1.7 % (0.0-7.0); HEMATOCRIT 34.6 % (42.0-52.0); HEMOGLOBIN 11.8 g/dl (14.0-18.0); LYMPHOCYTES # 1.3 10^3/ul (0.8-2.9); LYMPHOCYTES % 11.6 % (15.0-51.0); MEAN CORPUSCULAR HEMOGLOBIN 31.2 pg (29.0-33.0); MEAN CORPUSCULAR HGB CONC 34.1 g/dl (32.0-37.0); MEAN CORPUSCULAR VOLUME 91.5 fl (82.0-101.0); MEAN PLATELET VOLUME 9.9 fl (7.4-10.4); MONOCYTE # 0.8 10^3/ul (0.3-0.9); NEUTROPHILS % 78.9 % (39.0-77.0); PLATELET COUNT 214 10^3/UL (140-415); RED BLOOD COUNT 3.78 10^6/ul (4.70-6.10); RED CELL DISTRIBUTION WIDTH 12.5 % (11.5-14.5)
[2018-10-20] MEDS: INSULIN ASPART [NOVOLOG] 3 ML PEN SC ×4 (07:49→21:00)
[2018-10-20 08:02] LABS: ANION GAP 9 (5-13); BLOOD UREA NITROGEN 11 mg/dl (7-20); CALCIUM 6.5 mg/dl (8.4-10.2); CARBON DIOXIDE 35 mmol/L (21-31); CHLORIDE 96 mmol/L (97-110); CREATININE 0.85 mg/dl (0.61-1.24); Estimated GFR > 60 mL/min (>60); GLUCOSE 132 mg/dl (70-220); MAGNESIUM 1.7 mg/dl (1.7-2.5); PHOSPHORUS 4.3 mg/dl (2.5-4.9); SODIUM 140 mmol/L (135-144)
[2018-10-20 08:10] LABS: POTASSIUM 2.8 mmol/L (3.5-5.1)
[2018-10-20] MEDS: METOPROLOL 25 MG TAB PO ×2 (09:00→21:12)
[2018-10-20] MEDS: MAGNESIUM SULFATE 2 GM/50 ML 50 ML IVPB (09:02)
[2018-10-20] MEDS: GABAPENTIN 100 MG CAP PO (09:03)
[2018-10-20] MEDS: PYRIDOXINE 50 MG TAB PO (09:03)
[2018-10-20] MEDS: POTASSIUM CHLORIDE (SR) 20 MEQ TAB PO ×3 (09:03)
[2018-10-20] MEDS: APIXABAN 5 MG TABLET PO ×2 (09:03→21:11)
[2018-10-20] MEDS: DOCUSATE SODIUM 100 MG CAP PO ×2 (09:03→21:11)
[2018-10-20] MEDS: LOSARTAN 25 MG TAB PO (09:05)
[2018-10-20] MEDS: ALPHAGAN P 0.1% BOTH EYES ×3 (09:05→21:13)
[2018-10-20] MEDS: AMLODIPINE 10 MG TAB PO (09:05)
[2018-10-20] MEDS: ASPIRIN (EC) 81 MG TAB PO (09:06)
[2018-10-20 15:47] LABS: POTASSIUM 4.4 mmol/L (3.5-5.1)
[2018-10-20] MEDS: ATORVASTATIN 20 MG TAB PO (21:11)
[2018-10-20] MEDS: PAROXETINE 20 MG TAB PO (21:11)
[2018-10-20] MEDS: LATANOPROST 0.005% 2.5 ML OPH BOTH EYES (21:13)
[2018-10-21] MEDS: ACCU-CHEK XX (02:00)
[2018-10-21] MEDS: BUMETANIDE 1 MG TAB PO ×2 (05:06→17:26)
[2018-10-21 07:08] LABS: ADD MAN DIFF? NO
[2018-10-21 07:11] LABS: BASOPHIL # 0.1 10^3/ul (0.0-0.1); BASOPHILS % 0.5 % (0.0-2.0); EOSINOPHILS # 0.2 10^3/ul (0.0-0.5); EOSINOPHILS % 2.4 % (0.0-7.0); HEMATOCRIT 30.8 % (42.0-52.0); HEMOGLOBIN 10.5 g/dl (14.0-18.0); LYMPHOCYTES # 1.9 10^3/ul (0.8-2.9); LYMPHOCYTES % 18.6 % (15.0-51.0); MEAN CORPUSCULAR HEMOGLOBIN 31.5 pg (29.0-33.0); MEAN CORPUSCULAR HGB CONC 34.1 g/dl (32.0-37.0); MEAN CORPUSCULAR VOLUME 92.5 fl (82.0-101.0); MEAN PLATELET VOLUME 9.6 fl (7.4-10.4); MONOCYTE # 0.8 10^3/ul (0.3-0.9); MONOCYTES % 7.6 % (0.0-11.0); NEUTROPHIL # 7.1 10^3/ul (1.6-7.5); NEUTROPHILS % 70.4 % (39.0-77.0); PLATELET COUNT 194 10^3/UL (140-415); RED BLOOD COUNT 3.33 10^6/ul (4.70-6.10); RED CELL DISTRIBUTION WIDTH 11.9 % (11.5-14.5)
[2018-10-21 07:29] LABS: ANION GAP 9 (5-13); BLOOD UREA NITROGEN 21 mg/dl (7-20); CALCIUM 6.6 mg/dl (8.4-10.2); CARBON DIOXIDE 32 mmol/L (21-31); CHLORIDE 96 mmol/L (97-110); CREATININE 0.94 mg/dl (0.61-1.24); Estimated GFR > 60 mL/min (>60); GLUCOSE 121 mg/dl (70-220); POTASSIUM 3.7 mmol/L (3.5-5.1); SODIUM 137 mmol/L (135-144)
[2018-10-21 07:33] LABS: PHOSPHORUS 2.8 mg/dl (2.5-4.9)
[2018-10-21 07:33] LABS: MAGNESIUM 1.7 mg/dl (1.7-2.5)
[2018-10-21] MEDS: INSULIN ASPART [NOVOLOG] 3 ML PEN SC ×3 (07:44→16:58)
[2018-10-21] MEDS: METOPROLOL 25 MG TAB PO (08:18)
[2018-10-21] MEDS: PYRIDOXINE 50 MG TAB PO (08:18)
[2018-10-21] MEDS: LOSARTAN 25 MG TAB PO (08:18)
[2018-10-21] MEDS: GABAPENTIN 100 MG CAP PO (08:19)
[2018-10-21] MEDS: APIXABAN 5 MG TABLET PO (08:19)
[2018-10-21] MEDS: ASPIRIN (EC) 81 MG TAB PO (08:19)
[2018-10-21] MEDS: POTASSIUM CHLORIDE (SR) 20 MEQ TAB PO (08:19)
[2018-10-21] MEDS: DOCUSATE SODIUM 100 MG CAP PO (08:19)
[2018-10-21] MEDS: AMLODIPINE 10 MG TAB PO (08:19)
[2018-10-21] MEDS: ALPHAGAN P 0.1% BOTH EYES ×2 (08:26→12:42)
== END 2018-10-21 18:20 | disposition home or self-care (01) | DRG 392 ==
LOC: TEL 19:32 → E/R 17:28
DX: R10.9 Unspecified abdominal pain (principal); I50.30 Unspecified diastolic (congestive) heart failure; I69.954 Hemiplegia and hemiparesis following unspecified cerebrovascular disease affecting left non-dominant side; I25.10 Atherosclerotic heart disease of native coronary artery without angina pectoris; Z95.1 Presence of aortocoronary bypass graft; I48.91 Unspecified atrial fibrillation; I11.0 Hypertensive heart disease with heart failure; E11.9 Type 2 diabetes mellitus without complications; J44.9 Chronic obstructive pulmonary disease, unspecified; E83.42 Hypomagnesemia
CPT/HCPCS: 36415; 73030; 74176; 80048; 80053; 80061; 81001; 82436; 82550; 82553; 82962; 83036; 83690; 83735; 83970; 84100; 84132; 84133; 84300; 84443; 84484; 85025; 87081; 93005; 96361; 96374; 99285-25; G0378